=== PATIENT | female | born 1980 | race Caucasian/White ===

== ENCOUNTER 2023-01-24 16:13 | Outpatient (REF) | payer BC, SELFPAY ==
[2023-01-24 21:42] LABS: HCT 40.2 % (36.0-46.0); HGB 13.4 g/dL (11.2-15.7); MCH 31.7 pg (27.0-33.0); MCHC 33.3 % (32.0-36.0); MCV 95 fL (80-95); MPV 10.5 fL (8.0-11.0); Platelet Count 244 10^3/uL (130-400); RBC 4.23 10^6/uL (3.93-5.22); RDW-SD 41.5 fL; WBC 4.59 10^3/uL (4.4-10.8)
[2023-01-24 22:10] LABS: Calculated LDL 66 mg/dL (<100); Cholesterol 173 mg/dL (<200); Ferritin 40 ng/mL (8-252); Glucose 99 mg/dL (74-106); HDL Cholesterol 102 mg/dL (40-60); TSH (W/Ref FT4) 0.74 uIU/mL (0.36-3.74); Triglyceride 25 mg/dL (<150)
[2023-01-26 09:31] LABS: Hepatitis C Ab w Rflx HCV PCR Negative (Negative)
[2023-01-26 09:44] LABS: HIV-1/2 Ag & Ab Screen Negative (Negative)
== END 2023-01-24 16:14 | disposition home or self-care (01) ==
LOC: NCHCN 16:13
PROVIDERS: Visit Provider Nurse Practitioner Family
DX: Z00.00 Encounter for general adult medical examination without abnormal findings (principal); D64.9 Anemia, unspecified; Z13.1 Encounter for screening for diabetes mellitus; Z13.29 Encounter for screening for other suspected endocrine disorder; Z11.4 Encounter for screening for human immunodeficiency virus [HIV]; Z11.59 Encounter for screening for other viral diseases; Z13.220 Encounter for screening for lipoid disorders
CPT/HCPCS: 80061; 82947; 85027; 86803; 87389; 82728; 84443

== ENCOUNTER 2023-03-15 12:19 | Outpatient (REF) | payer BC, SELFPAY ==
--- NOTE | 2023-03-15 11:45 | PAPFT_PTH ---
PATIENT: Nalini Chavez LOC: [facility]#:[id number] AGE/SX: 42/F ROOM: RE03/15/[address]: Quynh Barros : 1980 BED: DIS: 03/15/2023 SPEC #: [id number] RECD: 03/15/23 17:18 STATUS: ELDA RELiliam #: [id number] HUI: 03/15/23 11:[address]: Quynh Barros DEPT: [facility] Cytology RECD BY: Najma Fenton Tissues: 1 - CX/ENDOCX FOR PAP SMEARS Procedures: PAP THIN PREP/[facility] Screening HPV DNA PROBE Comments: [id number] (CHLAMYDIA/GC)
--- OUTSIDE RECORDS SUMMARY | 2023-03-15 12:22 | XMS_ITS | CCD ---
Author Name Unknown Address [address] [place] [address] [id number] Organization Unknown Address [address], [place] [id number] Care Team Providers Care Tire Curer Name Role Phone ESTELA ESPOSITO Attending Physician [phone] ESTELA ESPOSITO Rounding (Secondary) Physici an [phone] Vital Signs Unknown or Not Available. Allergies Unknown or Not Available. Procedures Unknown or Not Available. History of Immunizations Unknown or Not Available. Problems Unknown or Not Available. Results Unknown or Not Available. Active Medications Unknown or Not Available. Medications Administered During Visit Unknown or Not Available. Encounters Encounter Diagnosis Diagnosis Code Start Date Trigger thumb of right hand [id number] 11/07 Social History Unknown or Not Available. Patient Decision Aids Unknown or Not Available. Discharge Instructions You were admitted to [facility] on 12/02/2022 14:21 with a principal diagnosis of Trigger thumb, right thumb You were discharged from [facility] on 12/02/2022 00:00 Should you have any questions prior to discharge, please contact a member of your healthcare team. If you have left the hospital and have any questions, please contact your primary care physician. Chief Complaint and Reason For Visit Unknown or Not Available. Function Status Unknown or Not Available. Plan of Care Unknown or Not Available. Referral/Transition of Care Unknown or Not Available.
--- OUTSIDE RECORDS SUMMARY | 2023-03-15 12:22 | XMS_ITS | CCD ---
Author Name Unknown Address [address] [place] [address] [id number] Organization Unknown Address [address] [place] [address] [phone] Care Team Providers Care Direct Marketing Executive Name Role Phone PAUL ORTEZ Attending Physician [phone] PAUL ORTEZ Rounding (Secondary) Physician [phone] Vital Signs Unknown or Not Available. Allergies Unknown or Not Available. Procedures Unknown or Not Available. History of Immunizations Unknown or Not Available. Problems Unknown or Not Available. Results Unknown or Not Available. Active Medications Unknown or Not Available. Medications Administered During Visit Unknown or Not Available. Encounters Encounter Diagnosis Diagnosis Code Start Date Trigger thumb of right hand [id number] 08/08 Social History Unknown or Not Available. Patient Decision Aids Unknown or Not Available. Discharge Instructions You were admitted to [facility] on 08/31/2022 14:44 with a principal diagnosis of Trigger thumb, right thumb You were discharged from [facility] on 08/31/2022 00:00 Should you have any questions prior [...]
[2023-03-16 14:09] LABS: Chlamydia Result Negative (Negative); GC Result Negative (Negative)
== END 2023-03-15 12:20 | disposition home or self-care (01) ==
LOC: NCHCN 12:19
PROVIDERS: PCP Nurse Practitioner Family; Visit Provider Nurse Practitioner Family
DX: Z00.00 Encounter for general adult medical examination without abnormal findings (principal); Z12.4 Encounter for screening for malignant neoplasm of cervix
CPT/HCPCS: 87491; 87591; 88142; 87624

== ENCOUNTER 2025-01-14 19:00 | Outpatient (REF) | payer BC, SELFPAY ==
[2025-01-14 21:29] LABS: HCT 39.5 % (36.0-46.0); HGB 13.3 g/dL (11.2-15.7); MCH 31.5 pg (27.0-33.0); MCHC 33.7 % (32.0-36.0); MCV 94 fL (80-95); MPV 10.4 fL (8.0-11.0); Platelet Count 254 10^3/uL (130-400); RBC 4.22 10^6/uL (3.93-5.22); RDW 12.0 % (11.7-14.6); RDW-SD 41.2 fL; WBC 5.72 10^3/uL (4.4-10.8)
[2025-01-14 22:14] LABS: Anion Gap 7.7 mmol/L (3-11); BUN 17 mg/dL (7-18); CO2 28.3 mmol/L (21.0-32.0); Calcium 9.6 mg/dL (8.5-10.1); Chloride 104 mmol/L (98-107); Estimated GFR 109.98 (mL/min/1.73m2); Ferritin 41 ng/mL (8-252); Folate 14.5 ng/mL (8.6-20.0); Glucose 83 mg/dL (74-106); Potassium 4.3 mmol/L (3.5-5.1); Sodium 140 mmol/L (136-145); TSH 1.13 uIU/mL (0.36-3.74); Vitamin B12 380 pg/mL (193-986); Vitamin D 25 Total 27 ng/mL (30-100)
[2025-01-14 23:08] LABS: Hemoglobin A1C 5.4 % (<5.7)
== END 2025-01-14 19:01 | disposition home or self-care (01) ==
LOC: NCHCN 19:00
PROVIDERS: PCP Nurse Practitioner Family; Visit Provider Nurse Practitioner Family
DX: R53.83 Other fatigue (principal); L65.9 Nonscarring hair loss, unspecified; Z83.3 Family history of diabetes mellitus
CPT/HCPCS: 80048; 82306; 85027; 82607; 82728; 82746; 83036; 84439; 84443